=== PATIENT | female | born 1980 | race Caucasian/White ===

== ENCOUNTER → 2020-08-15 | Outpatient (CLI) | payer OTHER | LOC: COL.RAD 12:22 → EDBD 12:30 → COL.RAD 12:30 | DX: M47.816 Spondylosis without myelopathy or radiculopathy, lumbar region (principal); M54.12 Radiculopathy, cervical region; E61.1 Iron deficiency ==

== ENCOUNTER → 2020-09-26 | Outpatient (CLI) | payer OTHER | LOC: COL.CARD 09:32 → EDBD 10:00 → COL.CARD 10:00 | DX: M79.606 Pain in leg, unspecified (principal); R25.3 Fasciculation; E61.1 Iron deficiency; M54.12 Radiculopathy, cervical region; G89.29 Other chronic pain; M54.5 Low back pain ==

== ENCOUNTER → 2020-11-01 | Outpatient (CLI) | payer OTHER | LOC: COL.RAD 10:52 | DX: G54.0 Brachial plexus disorders (principal); R94.01 Abnormal electroencephalogram [EEG]; E61.1 Iron deficiency; E55.9 Vitamin D deficiency, unspecified; R25.3 Fasciculation; G62.9 Polyneuropathy, unspecified; G56.23 Lesion of ulnar nerve, bilateral upper limbs ==

== ENCOUNTER → 2021-03-06 | Outpatient (CLI) | payer OTHER | LOC: COL.RAD 07:51 | DX: G45.0 Vertebro-basilar artery syndrome (principal); R20.0 Anesthesia of skin ==